=== PATIENT | female | born 1995 | race Caucasian/White ===

== ENCOUNTER 2020-04-29 10:42 | Outpatient (CLI) | payer MEDICAID, SELFPAY ==
--- NOTE | 2020-04-29 10:51 | XR_ITS ---
WS: [id number] Right foot, 3 views, 04/29/2020 Clinical Data: CHRONIC FOOT PAIN, CLUB FOOT BOTH LOWER EXTREMITIES Comparison: None. Findings: No fractures or dislocations are seen. No bone destruction or erosion is noted. The joint spaces and soft tissues are normal. There is an orthopedic plate attached with 4 orthopedic screws at the proximal portion of the right f irst metatarsal. The bones are gracile with loss of normal mineralization. There is an osteoarthritic spur probably of the third cuneiform seen best on the lateral view. XR/XR foot RT min 3V* [id number] Impression: 1. Postoperative orthopedic plate of the right first metatarsal. 2. 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
--- NOTE | 2020-04-29 10:51 | XR_ITS ---
WS: [id number] Left foot, 3 views, 04/29/2020 Clinical Data: CHRONIC FOOT PAIN, CLUB FOOT BOTH LOWER EXTREMITIES, SWELLING Comparison: None. Findings: There is an orthopedic plate at the base of the left first metatarsal fixed with 4 orthopedic screws. The bones are gracile. The configuration of the calcaneus varies from normal. No fractures or disloc ations are seen. Degenerative arthritic change of the left first MTP joint is seen. Bony demineralization especially of the bases of the metatarsals and tarsal bones is seen. XR/XR foot LT min 3V* [id number] Impression: 1. Bony changes probably related the patient's club foot. 2. Postoperative orthopedic plate at base of left first metatarsal.
== END 2020-04-29 10:43 | disposition home or self-care (01) ==
LOC: RADWPI 10:49
PROVIDERS: Family Provider Nurse Practitioner Family; PCP Nurse Practitioner Family; Visit Provider Nurse Practitioner Family
DX: M79.671 Pain in right foot (principal); M79.672 Pain in left foot; Q66.01 Congenital talipes equinovarus, right foot; M79.89 Other specified soft tissue disorders
CPT/HCPCS: 73630

== ENCOUNTER → 2020-05-12 12:45 | Outpatient (BNVA) | payer MEDICAID, SELFPAY | PROVIDERS: Family Provider Nurse Practitioner Family; PCP Nurse Practitioner Family; Visit Provider Psychiatry & Neurology Psychiatry | DX: F43.10 Post-traumatic stress disorder, unspecified (principal); F33.1 Major depressive disorder, recurrent, moderate | CPT/HCPCS: 90792 ==

== ENCOUNTER 2020-05-26 11:49 | Outpatient (CLI) | payer MEDICAID, SELFPAY | END 2020-05-26 11:50 | disposition home or self-care (01) | LOC: SPT 11:49 | PROVIDERS: Family Provider Nurse Practitioner Family; PCP Nurse Practitioner Family; Visit Provider Podiatrist Foot & Ankle Surgery | DX: Q66.89 Other specified congenital deformities of feet (principal) | CPT/HCPCS: 97760; L4361 ==

== ENCOUNTER → 2020-06-10 13:44 | Outpatient (BNVA) | payer MEDICAID, SELFPAY | PROVIDERS: Family Provider Nurse Practitioner Family; PCP Nurse Practitioner Family; Visit Provider Psychiatry & Neurology Psychiatry | DX: Z72.820 Sleep deprivation (principal); F33.1 Major depressive disorder, recurrent, moderate; F43.10 Post-traumatic stress disorder, unspecified | CPT/HCPCS: 99214 ==

== ENCOUNTER → 2020-07-22 08:32 | Outpatient (BNVA) | payer MEDICAID, SELFPAY | PROVIDERS: Family Provider Nurse Practitioner Family; PCP Nurse Practitioner Family; Visit Provider Psychiatry & Neurology Psychiatry | DX: F33.1 Major depressive disorder, recurrent, moderate (principal); F43.10 Post-traumatic stress disorder, unspecified; Z72.820 Sleep deprivation | CPT/HCPCS: 99214 ==

== ENCOUNTER → 2020-10-05 10:26 | Outpatient (BNVA) | payer BC, SELFPAY | PROVIDERS: Family Provider Nurse Practitioner Family; PCP Nurse Practitioner Family; Visit Provider Nurse Practitioner Family | DX: M25.571 Pain in right ankle and joints of right foot (principal) | CPT/HCPCS: 73610 ==

== ENCOUNTER 2021-01-12 22:18 | Emergency (ER) | payer BC, MEDICAID, SELFPAY ==
[2021-01-12 22:42] VITALS: BP 157/76; PULSE 87; RESP 18; TEMP 36.9; O2SAT 100; BMI 43.4
[2021-01-12 22:48] VITALS: BP 146/92; PULSE 88; RESP 20; O2SAT 97
--- NOTE | 2021-01-12 23:11 | CTR_ITS ---
PROCEDURE INFORMATION: Exam: CT Lumbar Spine Without Contrast Exam date and time: 01/12/2021 11:13 PM Age: 25 years old Clinical indication: Injury or trauma; Blunt trauma (contusions or hematomas); Injury details: Fall- pain in lower back TECHNIQUE: Imaging protocol: Computed tomography images of the lumbar spine without contrast. Radiation optimization: All CT scans at this facility use at least one of these dose optimization techniques: automated exposure control; mA and/or kV adjustment per patient size (includes targeted exams where dose is matched to clinical indication); or iterative reconstruction. COMPARISON: No relevant prior studies available. RADIATION DOSE METRICS: Total DLP (mGy-cm): 2099.3 FINDINGS: Vertebrae: No anterior wedging deformity. No acute lucent fracture lines visualized. Discs/Spinal canal/Neural foramina: There is a central disc protrusion at L4-L5 which is mildly narrowing the central canal. There is a left eccentric broad-based disc protrusion at L5-S1 which is mildly narrowing the anterior canal. No severe central or neural foraminal stenosis demonstrated by CT. Sacrum/coccyx: Small bone island in the right sacrum. A subcentimeter mildly sclerotic focus in the left posterior ilium is nonspecific, likely benign etiology in a patient of this age. CT/CT lumbar spine wo con* [id number] IMPRESSION: 1. No acute lumbar spinal injury demonstrated by CT. 2. Lower lumbar disc protrusions, as above, with no severe central canal or neural foraminal stenosis. Radiation Dose CTDIVOL = (mGy): DLP = 2099.3 (mGy-cm)
--- NOTE | 2021-01-12 23:11 | CTR_ITS ---
PROCEDURE INFORMATION: Exam: CT Head Without Contrast Exam date and time: 01/12/2021 11:13 PM Age: 25 years old Clinical indication: Injury or trauma; Blunt trauma (contusions or hematomas); Without loss of consciousness; Injury details: Fall. Throbbing headache TECHNIQUE: Imaging protocol: Computed tomography of the head without contrast. Radiation optimization: All CT scans at this facility use at least one of these dose optimization techniques: automated exposure control; mA and/or kV adjustment per patient size (includes targeted exams where dose is matched to clinical indication); or iterative reconstruction. COMPARISON: No relevant prior studies available. RADIATION DOSE METRICS: Total DLP (mGy-cm): 1469.51 FINDINGS: Brain: Normal. No hemorrhage. Unremarkable white matter. No mass effect. Cerebral ventricles: No ventriculomegaly. Bones/joints: No acute findings. Paranasal sinuses: Visualized sinuses are unremarkable. No fluid levels. Mastoid air cells: Visualized mastoid air cells are well aerated. Soft tissues: Unremarkable. CT/CT head wo con* [id number] IMPRESSION: No acute intracranial abnormality. Radiation Dose CTDIVOL = (mGy): DLP = 1469.51 (mGy-cm)
--- NOTE | 2021-01-12 23:11 | CTR_ITS ---
PROCEDURE INFORMATION: Exam: CT Cervical Spine Without Contrast Exam date and time: 01/12/2021 11:13 PM Age: 25 years old Clinical indication: Injury or trauma; Blunt trauma; Injury details: Fall- throbbing TOM and neck pain TECHNIQUE: Imaging protocol: Computed tomography images of the cervical spine without contrast. Radiation optimization: All CT scans at this facility use at least one of these dose optimization techniques: automated exposure control; mA and/or kV adjustment per patient size (includes targeted exams where dose is matched to clinical indication); or iterative reconstruction. COMPARISON: No relevant prior studies available. RADIATION DOSE METRICS: Total DLP (mGy-cm): 823.06 FINDINGS: Bones/joints: Rudimentary cervical ribs. No acute bony findings. Discs/Spinal canal/Neural foramina: No significant disc protrusion. No severe spinal canal stenosis. No significant neural foraminal narrowing. Lungs: Lung apices are normal. Soft tissues: Unremarkable. CT/CT cervical spin wo con* [id number] IMPRESSION: No acute findings. Radiation Dose CTDIVOL = (mGy): DLP = 823.06 (mGy-cm)
[2021-01-12] MEDS: HYDROcodone-acetaminophen 5-325 mg Tablet 1 TAB PO (23:18)
--- NOTE | 2021-01-12 23:25 | ED_ITS ---
HPI - Fall General: Chief Complaint: Fall Stated Complaint: FALL Time Seen by Provider: 01/12/21 23:04 Source: patient Mode of arrival: ambulatory Limitations: no limitations History of Present Illness: HPI Narrative: 25-year-old female states she fell on some muddy ground roughly 3 hours ago. States she fell backwards and hit her head had a headache along with neck and lower back pain since the fall. States pain is sharp nature rates 5 out of 10. Denies any loss conscious. She has been able to ambulate states it makes her headache worse. MD complaint: fall Associated symptoms-after fall: Reports headache(s) and neck pain; Denies abdominal pain or chest pain Review of Systems Const: Denies: fever(s), chills, body aches or change in appetite Eyes: Denies: blurry vision or eye discomfort ENMT: Denies: throat pain or dental pain Card: Denies: chest pain Resp: Denies: dyspnea GI: Denies: abdominal pain, nausea, vomiting or diarrhea : Denies: dysuria Musc: Reports: neck pain and back pain Skin/Breast: Denies: rash Neuro: Reports: headache(s) Psych: Denies: depression Awais/Lymph: Denies: easy bruising All/Imm: Denies: urticaria PFSH ED PFSH: Medical History MDD (major depressive disorder) Problems related to lack of adequate sleep PTSD (post-traumatic stress disorder) Social History Smoking and tobacco status: current every day smoker Alcohol intake: never Current occupational status: unemployed Current gender identity: Female Physical Exam Const: COMMON NORMALS: no acute distress, patient oriented x3 and healthy appearing HENMT: COMMON NORMALS: normocephalic HEAD & SCALP: normocephalic OTHER: Tenderness to back of scalp Eye: COMMON NORMALS: Equal, round and reactive pupils present and EOMs intact bilaterally PUPIL: Yes Equal, round and reactive pupils present Neck/C-Spine: COMMON NORMALS: supple OTHER: Slight midline tenderness to the neck Chest: COMMONS NORMALS: normal inspection of the chest and normal palpation of entire chest wall Resp: COMMON NORMALS: normal respiratory effort, No retractions, No use of accessory muscles and clear to auscultation bilaterally AUSCULTATION: clear to auscultation bilaterally Cardio: COMMON NORMALS: regular rate, regular rhythm and No murmurs present (Cardio) RATE: regular rate RHYTHM: regular rhythm GI: COMMON NORMALS: Normal to inspection, nondistended, normoactive bowel sounds present, Soft to palpation, non-tender and no masses PALPATION: Yes Soft to palpation Extremity: COMMON NORMALS: normal to inspection and full ROM Neuro: COMMON NORMALS: patient oriented x3, moves all extremities and no focal motor deficits Psych: COMMON NORMALS: mental status grossly normal, Normal thought process present and cooperative THOUGHT PROCESS: Normal thought process present Skin: COMMON NORMALS: no rashes or lesions noted and no wounds GENERAL SKIN EXAM: no rashes or lesions noted Course Vital Signs: Vital signs: Vital Signs Temperature 98.4 F 01/12/21 22:42 Pulse Rate 88 01/12/21 22:48 Respiratory Rate 20 H 01/12/21 22:48 Blood Pressure 146/92 01/12/21 22:48 Pulse Oximetry 97 01/12/21 22:48 MDM - Fall MDM Narrative: Medical decision making narrative: Patient presents after a fall with a closed head injury with low back pain as well. Her CT here is all normal. Patient is ambulatory and is stable for discharge. She is to follow-up PCP and return if worsening. Imaging Data^: CT Head: Radiologist's impression: [address] [address] [address] Scan Report Signed Patient: Yumiko Beltran Unit #: [id number] : 1995 Age/Sex: 25 / F ADM Date: 01/12/21 Loc: ER Room/Bed: Attending Dr: Ordering Provider/Ordering MD: Mary Anne Baldwin MD Date of Service: 01/12/21 Procedure(s): CT head wo con* [id number] Accession Number(s): [id number] Report Number: [id number] PROCEDURE INFORMATION: Exam: CT Head Without Contrast Exam date and time: 01/12/2021 11:13 PM Age: 25 years old Clinical indication: Injury or trauma; Blunt trauma (contusions or hematomas); Without loss of consciousness; Injury details: Fall. Throbbing headache TECHNIQUE: Imaging protocol: Computed tomography of the head without contrast. Radiation optimization: All CT scans at this facility use at least one of these dose optimization techniques: automated exposure control; mA and/or kV adjustment per patient size (includes targeted exams where dose is matched to clinical indication); or iterative reconstruction. COMPARISON: No relevant prior studies available. RADIATION DOSE METRICS: Total DLP (mGy-cm): 1469.51 FINDINGS: Brain: Normal. No hemorrhage. Unremarkable white matter. No mass effect. Cerebral ventricles: No ventriculomegaly. Bones/joints: No acute findings. Paranasal sinuses: Visualized sinuses are unremarkable. No fluid levels. Mastoid air cells: Visualized mastoid air cells are well aerated. Soft tissues: Unremarkable. CT/CT head wo con* [id number] IMPRESSION: No acute intracranial abnormality. ct c spine: Radiologist's impression: [address] [address] [address] Scan Report Signed Patient: Yumiko Beltran Unit #: [id number] : 1995 Age/Sex: 25 / F ADM Date: 01/12/21 Loc: ER Room/Bed: Attending Dr: Ordering Provider/Ordering MD: Mary Anne Baldwin MD Date of Service: 01/12/21 Procedure(s): CT cervical spin wo con* [id number] Accession Number(s): [id number] Report Number: [id number] PROCEDURE INFORMATION: Exam: CT Cervical Spine Without Contrast Exam date and time: 01/12/2021 11:13 PM Age: 25 years old Clinical indication: Injury or trauma; Blunt trauma; Injury details: Fall- throbbing TOM and neck pain TECHNIQUE: Imaging protocol: Computed tomography images of the cervical spine without contrast. Radiation optimization: All CT scans at this facility use at least one of these dose optimization techniques: automated exposure control; mA and/or kV adjustment per patient size (includes targeted exams where dose is matched to clinical indication); or iterative reconstruction. COMPARISON: No relevant prior studies available. RADIATION DOSE METRICS: Total DLP (mGy-cm): 823.06 FINDINGS: Bones/joints: Rudimentary cervical ribs. No acute bony findings. Discs/Spinal canal/Neural foramina: No significant disc protrusion. No severe spinal canal stenosis. No significant neural foraminal narrowing. Lungs: Lung apices are normal. Soft tissues: Unremarkable. CT/CT cervical spin wo con* [id number] IMPRESSION: No acute findings. Other CT: Attestation: I personally reviewed and interpreted this imaging study as follows: Radiologist's impression: [address] [place] [address] CT Scan Report Signed Patient: Yumiko Beltran Unit #: [id number] : 1995 Age/Sex: 25 / F ADM Date: 01/12/21 Loc: ER Room/Bed: Attending Dr: Ordering Provider/Ordering MD: Mary Anne Baldwin MD Date of Service: 01/12/21 Procedure(s): CT lumbar spine wo con* [id number] Accession Number(s): [id number] Report Number: [id number] PROCEDURE INFORMATION: Exam: CT Lumbar Spine Without Contrast Exam date and time: 01/12/2021 11:13 PM Age: 25 years old Clinical indication: Injury or trauma; Blunt trauma (contusions or hematomas); Injury details: Fall- pain in lower back TECHNIQUE: Imaging protocol: Computed tomography images of the lumbar spine without contrast. Radiation optimization: All CT scans at this facility use at least one of these dose optimization techniques: automated exposure control; mA and/or kV adjustment per patient size (includes targeted exams where dose is matched to clinical indication); or iterative reconstruction. COMPARISON: No relevant prior studies available. RADIATION DOSE METRICS: Total DLP (mGy-cm): 2099.3 FINDINGS: Vertebrae: No anterior wedging deformity. No acute lucent fracture lines visualized. Discs/Spinal canal/Neural foramina: There is a central disc protrusion at L4-L5 which is mildly narrowing the central canal. There is a left eccentric broad-based disc protrusion at L5-S1 which is mildly narrowing the anterior canal. No severe central or neural foraminal stenosis demonstrated by CT. Sacrum/coccyx: Small bone island in the right sacrum. A subcentimeter mildly sclerotic focus in the left posterior ilium is nonspecific, likely benign etiology in a patient of this age. CT/CT lumbar spine wo con* [id number] IMPRESSION: 1. No acute lumbar spinal injury demonstrated by CT. 2. Lower lumbar disc protrusions, as above, with no severe central canal or neural foraminal stenosis. Discharge Plan Discharge Patient Disposition: Home Clinical Impression: Closed head injury, Contusion of lower back Fall Qualifiers: Encounter type: initial encounter Qualified Code(s): W19.XXXA - Unspecified fall, initial encounter Condition: Stable Prescriptions: New Naprosyn 500 mg tablet 500 mg PO BID PRN (Reason: pain) Qty: 20 RF: 0 No Action gabapentin 100 mg capsule 300 mg PO DAILY RF: 0 escitalopram oxalate 20 mg tablet 20 mg PO DAILY 30 Days Qty: 30 RF: 3 trazodone 100 mg tablet 100 mg PO .qhs 30 Days Qty: 30 RF: 3 (DME) cam boot See Rx Instructions .Route .MEDSUPPLY Qty: 1 RF: 0 hydroxyzine HCl 25 mg tablet 25 mg PO QID PRN (Reason: anxiety) 30 Days Qty: 120 RF: 3 (DME) DME: [facility] See Rx Instructions .ROUTE .MEDSUPPLY Qty: 1 RF: 0 (DME) DME: [facility] See Rx Instructions .ROUTE .MEDSUPPLY Qty: 1 RF: 0 (DME) Custom articulating AFO, left lower extrimity See Rx Instructions .Route .MEDSUPPLY Qty: 1 RF: 0 Discharge Orders: Discharge ED (Routine); Ordered 01/12/21 Ordered By: Mary Anne Baldwin Referrals: Maravilla,Monse, PROPERTY DISPOSAL MANAGER [Primary Care Provider] - 1-3 days Discharge Diet: Advance as tolerated Discharge Activity: Resume usual activity Patient Instructions: Minor Head Injury (ED) Coding Level of Care Code ED Diesel Stationary Engineer for Michelle Fwd Exam Comprehensive
[2021-01-13 00:09] VITALS: BP 146/92; PULSE 86; RESP 18; O2SAT 96
== END 2021-01-12 23:55 | disposition home or self-care (01) ==
PROVIDERS: Emergency Provider Emergency Medicine; PCP Nurse Practitioner Family
DX: S09.8XXA Other specified injuries of head, initial encounter (principal); S30.0XXA Contusion of lower back and pelvis, initial encounter; F17.210 Nicotine dependence, cigarettes, uncomplicated; W19.XXXA Unspecified fall, initial encounter
CPT/HCPCS: 70450; 72125; 72131; 99283

== ENCOUNTER 2021-02-27 14:52 | Inpatient (IN) | payer BC, MEDICAID, SELFPAY ==
[2021-02-27 14:58] VITALS: BP 164/81; PULSE 100; RESP 18; TEMP 36.4; O2SAT 99; BMI 42.7
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
[2021-02-27 15:30] LABS: Add Urine Microscopic? YES; Bilirubin Urine Neg (Negative); Blood Urine 3+ (Negative); Glucose Urine UA Norm (Normal); Ketones Urine Negative (Negative); Leukocyte Esterase Urine 1+ (Negative); Nitrate Urine Negative (Negative); Protein Urine Neg (Negative); RBC Urine 0-4 /hpf (0-2); Specific Gravity, Urine 1.025 (1.005-1.030); Urine Appearance Hazy (CLEAR); Urine Color Straw (Yellow); Urobilinogen Urine 1 mg/dL (Negative); pH Urine 5 (5-7)
[2021-02-27 15:31] LABS: Add Urine Culture? No; Bacteria Urine 2+ /hpf; Mucus Urine TRACE /hpf
[2021-02-27 15:32] LABS: Amphetamines Screen Urine Negative (Negative); Barbiturates Screen Urine Negative (Negative); Benzodiazepines Screen Urine Negative (Negative); Cocaine Screen Urine Negative (Negative); Opiate Screen Urine Negative (Negative); PCP Screen Urine Negative (Negative); THC Screen Urine Negative (Negative)
[2021-02-27 15:41] LABS: Basophils % 0.6 %; Eosinophils # 0.1 10^3/uL (0.0-0.8); Hematocrit 31.9 % (37.0-47.0); Hemoglobin 9.1 g/dL (11.5-15.3); Lymphocytes # 1.3 10^3/uL (0.8-4.8); Lymphocytes % 19.6 %; Mean Corpuscular HGB Conc 28.5 g/dL (30.0-36.0); Mean Corpuscular Hemoglobin 20.2 pg (28.0-34.0); Mean Corpuscular Volume 70.9 fL (81-99); Mean Platelet Volume 11.2 fL (7.4-10.4); Monocytes # 0.5 10^3/uL (0.2-0.9); Monocytes % 7.7 %; Neutrophils # 4.85 10^3/uL (1.8-7.7); Neutrophils % 70.8 %; Nucleated Red Blood Cells % 0 %; Platelet Count 258 10^3/cmm (130-400); Red Cell Distribution Width 16.8 % (12.1-15.1); White Blood Count 6.9 10^3/uL (4.0-10.0)
[2021-02-27 16:14] LABS: Alanine Aminotransferase 13 U/L (0-33); Alkaline Phosphatase 79 IU/L (35-105); Anion Gap 14.6 (5-19); Aspartate Amino Transferase 14 U/L (0-32); Blood Urea Nitrogen 8 mg/dL (6-20); Calcium 8.4 mg/dL (8.5-10.5); Carbon Dioxide 25 mmol/L (22-29); Chloride 103 mmol/L (98-107); Globulin 2.6 g/dL (1.3-4.6); Glomerular Filtration Rate 119.9 mL/min (90-130); Glucose 107 mg/dL (65-115); Osmolality Calculated 287 mOsm/kg (285-295); Potassium 3.6 mmol/L (3.5-5.1); Sodium 139 mmol/L (136-145); Thyroid Stimulating Hormone 1.96 uIU/mL (0.27-4.20); Total Bilirubin 0.2 mg/dL (0.15-1.2); Total Protein 6.6 g/dL (6.6-8.7)
[2021-02-27 16:21] LABS: Acetaminophen < 5.0 ug/mL (10-30); Alcohol Level < 10 mg/dL (0-10); Salicylate < 0.3 mg/dL (3-10)
[2021-02-27 17:32] VITALS: RESP 18; TEMP 36.4; O2SAT 99
[2021-02-27 17:45] VITALS: RESP 18; TEMP 36.4; O2SAT 99; BMI 42.7
[2021-02-27 18:00] VITALS: RESP 18; TEMP 36.4; O2SAT 99
[2021-02-27 18:33] VITALS: BP 149/99; PULSE 97; RESP 18; TEMP 36.8; O2SAT 100
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
[2021-02-27 20:58] VITALS: BP 115/74; PULSE 91; RESP 19; TEMP 36.9; O2SAT 99
[2021-02-27] MEDS: cephALEXin 500 mg Capsule PO (21:24)
[2021-02-27] MEDS: trazodone 50 mg Tablet PO (21:27)
[2021-02-27] MEDS: gabapentin 300 mg Capsule 600 MG PO (22:43)
[2021-02-27] MEDS: amitriptyline 25 mg Tablet 50 MG PO (22:43)
--- NOTE | 2021-02-27 22:58 | PC.NURSE ---
HS meds given at 2243. pt resting quietly with both eyes closed at this time.
[2021-02-28 06:00] VITALS: BP 103/63; PULSE 79; RESP 19; TEMP 36.7; O2SAT 97
[2021-02-28] MEDS: gabapentin 300 mg Capsule 600 MG PO ×3 (08:03→21:20)
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
[2021-02-28] MEDS: sertraline 50 mg Tablet PO (11:12)
[2021-02-28 14:00] VITALS: BP 115/75; PULSE 86; RESP 14; TEMP 36.6; O2SAT 97
[2021-02-28] MEDS: acetaminophen 325 mg Tablet 650 MG PO (15:54)
--- NOTE | 2021-02-28 18:05 | PC.RESP ---
Smoking Cessation information sent to patient.
[2021-02-28] MEDS: hyDROXYzine 25 mg Capsule 50 MG PO (21:20)
[2021-02-28] MEDS: amitriptyline 25 mg Tablet 50 MG PO (21:20)
[2021-02-28] MEDS: trazodone 50 mg Tablet PO (21:59)
[2021-02-28 22:00] VITALS: BP 118/81; PULSE 98; RESP 18; TEMP 36.5; O2SAT 95
[2021-03-01 05:38] VITALS: BP 107/64; PULSE 75; RESP 14; TEMP 36.6; O2SAT 96
[2021-03-01] MEDS: gabapentin 300 mg Capsule 600 MG PO ×3 (08:22→20:12)
[2021-03-01] MEDS: sertraline 50 mg Tablet PO (08:22)
--- NOTE | 2021-03-01 09:29 | P.PN_ITS ---
Subjective NPU Subjective: Interval history: Patient continues to report depressive symptoms which she states have been impairing Denies any current suicidal ideation Reports some decrease in appetite, some difficulty with sleep secondary to mood symptoms Reports being compliant with medication, denies any medication side effects Per nurse report, no interval behavioral disturbances Mental Status Exam MSE Comments: Lying in bed, sad appearing, good eye contact Psychomotor activity is decreased, no agitation Speech is low volume, somewhat slow rate, spontaneous, fair articulation, not pressured I feel depressed, congruent affect, not labile Alert and oriented to person, place, time, situation Memory and concentration appear to be intact per interview Thought process, linear, no flight of ideas, no looseness of associations Thought content, no delusions, no hallucinations, no suicidal or homicidal ideation Insight and judgment appear to be fair Vitals/I&O/Wt Last Vital Signs Temp 98 F 03/01/21 05:38 Pulse 75 03/01/21 05:38 Resp 14 03/01/21 05:38 BP 107/64 03/01/21 05:38 Pulse Ox 96 03/01/21 05:38 Weight last 48 hrs Weight 106.141 kg Weight 106.141 kg Data NPU : 02/27/21 15:30 02/27/21 15:30 A&P Assessment and plan (1) Suicidal ideation: Status: Acute (2) Depressive disorder: Status: Acute (3) PTSD (post-traumatic stress disorder): Status: Acute Additional A&P Information Ongoing depressive symptoms with significant impairment INCREASE to sertraline 100 mg daily targeting depressive symptoms, PTSD symptoms Continue to monitor Involuntary Hold Information 96 Hour Hold: 96 Hour Involuntary Admission: Yes 96 Hour Hold Ending Date: 03/04/21 96 Hour Hold Ending Time: 00:05 Attestations NPU Medical Necessity Statement*: Continues to require psychiatric hospitalization for medication stabilization Coding Level of Care Code Acute Cold Mill 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
[2021-03-01] MEDS: hyDROXYzine 25 mg Capsule 50 MG PO (11:42)
--- NOTE | 2021-03-01 11:42 | PC.NURSE ---
Addendum entered by Izzy Wells LPN 03/01/21 14:29: prn med effective no further c/o anxiety Original Note: PRN VISTARIL 50 MG GIVEN PO PER PT C/O STATED ANXIETY. PT WITHDRAWN, REFUSED TO EAT LUNCH TRAY. WILL CONT TO MONITOR
[2021-03-01 14:00] VITALS: BP 122/78; PULSE 97; RESP 18; TEMP 36.7; O2SAT 96
[2021-03-01] MEDS: OLANZapine 5 mg ODT PO (20:12)
[2021-03-01] MEDS: amitriptyline 25 mg Tablet 50 MG PO (20:12)
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
[2021-03-01 22:00] VITALS: BP 122/79; PULSE 115; RESP 20; TEMP 36.8; O2SAT 97
--- NOTE | 2021-03-01 22:47 | PC.NURSE ---
pt resting quietly at this time.
[2021-03-02 06:00] VITALS: BP 116/66; PULSE 78; RESP 18; TEMP 36.3; O2SAT 96
[2021-03-02] MEDS: gabapentin 300 mg Capsule 600 MG PO (08:27)
[2021-03-02] MEDS: sertraline 100 mg Tablet PO (08:27)
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
[2021-03-02 09:23] VITALS: BP 116/66; PULSE 78; RESP 18; TEMP 36.3; O2SAT 96
== END 2021-03-02 13:03 | disposition home or self-care (01) | DRG 881 ==
LOC: ER 16:31 → NP 17:13
PROVIDERS: Admitting Provider Psychiatry & Neurology Psychiatry; Emergency Provider Family Medicine; PCP Nurse Practitioner Family; Visit Provider Psychiatry & Neurology Psychiatry
DX: F32.9 Major depressive disorder, single episode, unspecified (principal); R45.851 Suicidal ideations; F43.10 Post-traumatic stress disorder, unspecified; F41.9 Anxiety disorder, unspecified
CPT/HCPCS: 80053; 80306; 80307; 81001; 84443; 85025; 99285